=== PATIENT | male | born 1970 | race Caucasian/White ===

== ENCOUNTER 2019-01-02 20:02 | Observation (INO) | payer OTHER ==
[2019-01-02 20:13] LABS: Glucose,Whole Blood 111 mg/dL (75-99)
--- NOTE | 2019-01-02 20:35 | CT ---
EXAMINATION TYPE: CT brain wo con DATE OF EXAM: 01/02/2019 COMPARISON: None HISTORY: left sided facial and hand numbness CT DLP: 1087.4 mGycm Automated exposure control for dose reduction was used. FINDINGS: Ventricles and sulci appear normal. There is no mass effect nor midline shift. There is no sign of in tracranial hemorrhage. There is no evidence of cerebral edema. Calvarium is intact. IMPRESSION: NEGATIVE HEAD CT SCAN.
[2019-01-02 20:39] LABS: Basophils # (A) 0.1 k/uL (0-0.2); Basophils % (A) 1 %; Eosinophils # (A) 0.3 k/uL (0-0.7); Eosinophils % (A) 3 %; HCT 50.3 % (39.0-53.0); HGB 16.8 gm/dL (13.0-17.5); Lymphocytes % (A) 10 %; MCH 29.1 pg (25.0-35.0); MCHC 33.5 g/dL (31.0-37.0); MCV 86.8 fL (80.0-100.0); Mean Platelet Volume 7.2; Monocytes # (A) 0.5 k/uL (0-1.0); Monocytes % (A) 5 %; Neutrophils # (A) 8.5 k/uL (1.3-7.7); Neutrophils % (A) 81 %; Platelet Count 208 k/uL (150-450); RBC 5.79 m/uL (4.30-5.90); RDW 13.5 % (11.5-15.5); WBC 10.4 k/uL (3.8-10.6)
--- NOTE | 2019-01-02 20:43 | XR ---
EXAMINATION TYPE: XR chest 2V DATE OF EXAM: 01/02/2019 COMPARISON: NONE HISTORY: Face numbness TECHNIQUE: Frontal and lateral views of the chest are obtained. FINDINGS: Heart and mediastinum are normal. Lungs are clear. Diaphragm is normal. Bony thorax appear s normal. There are chest leads. IMPRESSION: Normal chest.
[2019-01-02 20:46] LABS: ALT 28 U/L (21-72); AST 24 U/L (17-59); African American GFR (CKD) >90 (>60 ml/min/1.73 sqM); Albumin 4.9 g/dL (3.5-5.0); Alkaline Phosphatase 85 U/L (38-126); Anion Gap 9 mmol/L; Blood Urea Nitrogen 15 mg/dL (9-20); Calcium 9.7 mg/dL (8.4-10.2); Carbon Dioxide 27 mmol/L (22-30); Chloride 102 mmol/L (98-107); Glucose 111 mg/dL (74-99); Potassium 4.5 mmol/L (3.5-5.1); Sodium 138 mmol/L (137-145); Total Bilirubin 0.6 mg/dL (0.2-1.3); Total Protein 7.9 g/dL (6.3-8.2)
[2019-01-02 20:48] LABS: Partial Thromboplastin Time 25.1 sec (22.0-30.0); Prothrombin Time 10.3 sec (9.0-12.0)
[2019-01-02] MEDS ORDERED: ASPIRIN 325 MG TAB PO STA (20:50)
[2019-01-02] MEDS ORDERED: ATORVASTATIN 80 MG TAB PO STA (20:51)
[2019-01-02 20:57] LABS: Creatine Kinase 111 U/L (55-170)
--- NOTE | 2019-01-02 20:58 | ED ---
General Adult HPI - General Chief complaint: Neuro Symptoms/Deficit Stated complaint: Rt sided weakness Source: patient, family, RN notes reviewed Mode of arrival: ambulatory Limitations: no limitations - History of Present Illness Initial comments: Chief complaint history of present illness a 56-year-old man here with his brother. The patient reports that approximately 3-1/2 hours ago while playing golf in the hot weather he felt he may have had a stroke. He reports that for 3 seconds the right side of his face was numb and then it returned. His brother said it seemed as though he had some difficulty not seeing words. 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 He states he much improved now though the sensation of tingling to the hand comes and goes. The patient even drove himself home afterwards. The patient denies any past medical problems, states he never sees a doctor. Denies being on any medications at this time. Denies any similar problems in the past. Denies anxiety or depression, alcohol or injury. - Related Data Home Medications Medication Instructions Recorded Confirmed No Known Home Medications 01/02/19 01/02/19 Allergies Allergy/AdvReac Type Severity Reaction Status Date / Time No Known Allergies Allergy Verified 01/02/19 20:42 Review of Systems ROS Statement: Those systems with pertinent positive or pertinent negative responses have been documented in the HPI. Review of systems. The patient's alert and oriented. Stating that 3/2 hours ago he thought he may have had a little stroke. He states for 3 seconds he had numbness to the right side of his face and some weakness to his investor relations specialist on his right hand started and is since gone away several times. He states he had difficulty writing his name. Patient otherwise alert and oriented and has no ot her neuro deficits. It has been 3-1/2 hours since the beginning of this episode. ROS Other: All systems not noted in ROS Statement are negative. Past Medical History Past Medical History: No Reported History History of Any Multi-Drug Resistant Organisms: None Reported Past Surgical History: No Surgical Hx Reported Past Psychological History: No Psychological Hx Reported Smoking Status: Current every day smoker Past Alcohol Use History: None Reported Past Drug Use History: None Reported General Exam - General Exam Comments Initial Comments: General: The patient is awake and alert, he states he thinks he may have had a stroke over 3 hours ago that lasted only 3 seconds. 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 Eye: Pupils are equal, round and reactive to light, extra-ocular movements are intact; there is normal conjunctiva bilaterally. No signs of icterus. Ears, nose, mouth and throat: There are moist mucous membranes and no oral lesions. Neck: The neck is supple, there is no tenderness, no carotid bruit Cardiovascular: There is a regular rate and rhythm. No murmur, rub or gallop is appreciated. Respiratory: Lungs are clear to auscultation, respirations are non-labored, breath sounds are equal. No wheezes, stridor, rales, or rhonchi. Gastrointestinal: Soft, non-distended, non-tender abdomen without masses or organomegaly noted. There is no rebound or guarding present. No CVA tenderness. Bowel sounds are unremarkable. Back: There is no tenderness to palpation in the midline. There is no obvious deformity. No rashes noted. Musculoskeletal: Normal ROM, no tenderness, There is no pedal edema. There is no calf tenderness or swelling. Sensation intact. Pulses equal bilaterally 2+. Neurological: CN II-XII intact, There are no obvious motor or sensory deficits. Coordination appears grossly intact. Speech is normal. 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 He states doesn't feel as strong as it normally is. Skin: Skin is warm and dry and no rashes or lesions are noted. Psychiatric: Cooperative, anxious Limitations: no limitations Course Vital Signs 01/02/19 01/02/19 01/02/19 20:05 20:10 20:40 Temperature 98.6 F 98.7 F 98.9 F Pulse Rate 80 70 70 Respiratory 18 14 14 Rate Blood Pressure 160/98 183/67 137/89 O2 Sat by Pulse 97 96 96 Oximetry 01/02/19 20:55 Temperature 98.7 F Pulse Rate 69 Respiratory 14 Rate Blood Pressure 137/93 O2 Sat by Pulse 96 Oximetry EKG Findings - EKG Comments: EKG Findings:: EKG was done and reviewed at 2019 showing normal sinus rhythm no acute ST elevation no ectopy. Rate 84 NV interval 148, QRS duration 94, QT [address] Guerrero Medical Decision Making - Medical Decision Making Rectal decision making; is a 48-year-old male who presents emergency room 3 1/2 hours after having what he thought was a little stroke. He states that while playing golf he felt numb and collapse of the right side of his face. This lasted only 3 seconds. He also complains of some weakness to his right hand which is gone since that time. This been over 3 and half hours. The patient drove himself home. Denying any headache no chest pain or palpitations. Patient states he never goes to the doctor and is not currently on any medications. Denies problems with anxiety or drugs or alcohol. States she's never had a problem like this before Stroke code was initiated, patient had a CAT scan of the brain, reviewed, Dr. Hawkins's findings include; ventricles and sulci appear normal. There is no mass effect or midline shift. There is no sign of intracranial hemorrhage. There is no evidence of cerebral edema. Calvarium is intact. Impression; normal head computed tomography scan. Chest x-ray was done and reviewed by radiologist his impression is heart and mediastinum are normal. Lungs are clear. Diaphragm is normal. Bony thorax appeared normal. There are chest leads. Impression; normal chest. As read by Dr. Shruthi Parkinson on-call neurologist interviewed the patient via telemedicine. He completed his interview and neurological exam. Dr. Starks spoke with the patient and stated that due to the clinical findings he does not recommend TPA to be given at this time. He recommends CTA brain and neck, at this time. He states that if negative and the patient remains symptom-free then he is to be admitted here this evening and have an MRI of his brain tomorrow. He stated that he would include in his dictation how the supervisor drilling and shooting can monitor the patient while in hospital. If all remains negative he is to follow-up with him in office in 2 weeks. Patient will be given aspirin 325, and Lipitor 80 mg. Show white count of 10 hemoglobin 16 hematocrit of 50. Potassium 4.5 with BUN of 15 creatinine 1.09 and GFR 79. Glucose 111. Troponin less than 0.012. The patient had a CTA of the cervical spine and brain. Full report was reviewed and the radiologist's final impression is normal CT angiogram of the neck and normal CT angiogram of the brain. As read by Dr. Hawkins Neuro exam at 10:15 PM patient remains intact. Subjective complaint of some mild tingling to his fingertips on his right hand. Otherwise answering questions appropriately, no gross abnormality., No headache. Patient be admitted to the on-call hospitalist. Patient walked to bathroom without difficulty. I spoke with and presented the case to Dr. Nathan, on-call hospitalist. Patient be admitted his service. Their neurologist included management to be followed while in hospital. With an MRI of the brain to be scheduled for tomorrow. - Lab Data Result diagrams: 01/02/19 20:17 01/02/19 20:17 Lab Results 01/02/19 01/02/19 01/02/19 Range/Units 20:11 20:17 20:17 WBC 10.4 (3.8-10.6) k/uL RBC 5.79 (4.30-5.90) m/uL Hgb 16.8 (13.0-17.5) gm/dL Hct 50.3 (39.0-53.0) % MCV 86.8 (80.0-100.0) fL MCH 29.1 (25.0-35.0) pg MCHC 33.5 (31.0-37.0) g/dL RDW 13.5 (11.5-15.5) % Plt Count 208 (150-450) k/uL Neutrophils % 81 % Lymphocytes % 10 % Monocytes % 5 % Eosinophils % 3 % Basophils % 1 % Neutrophils # 8.5 H (1.3-7.7) k/uL Lymphocytes # 1.0 (1.0-4.8) k/uL Monocytes # 0.5 (0-1.0) k/uL Eosinophils # 0.3 (0-0.7) k/uL Basophils # 0.1 (0-0.2) k/uL PT (9.0-12.0) sec INR (<1.2) APTT (22.0-30.0) sec Sodium 138 (137-145) mmol/L Potassium 4.5 (3.5-5.1) mmol/L Chloride 102 (98-107) mmol/L Carbon Dioxide 27 (22-30) mmol/L Anion Gap 9 mmol/L BUN 15 (9-20) mg/dL Creatinine 1.09 (0.66-1.25) mg/dL Est GFR (CKD-EPI)AfAm >90 (>60 ml/min/1.73 sqM) Est GFR (CKD-EPI)NonAf 79 (>60 ml/min/1.73 sqM) Glucose 111 H (74-99) mg/dL POC Glucose (mg/dL) 111 H (75-99) mg/dL 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 [employer] Elana Holloway Calcium 9.7 (8.4-10.2) mg/dL Total Bilirubin 0.6 (0.2-1.3) mg/dL AST 24 (17-59) U/L ALT 28 (21-72) U/L Alkaline Phosphatase 85 (38-126) U/L Total Creatine Kinase (55-170) U/L CK-MB (CK-2) (0.0-2.4) ng/mL CK-MB (CK-2) Rel Index Troponin I (0.000-0.034) ng/mL Total Protein 7.9 (6.3-8.2) g/dL Albumin 4.9 (3.5-5.0) g/dL 01/02/19 01/02/19 Range/Units 20:17 20:17 WBC (3.8-10.6) k/uL RBC (4.30-5.90) m/uL Hgb (13.0-17.5) gm/dL Hct (39.0-53.0) % MCV (80.0-100.0) fL MCH (25.0-35.0) pg MCHC (31.0-37.0) g/dL RDW (11.5-15.5) % Plt Count (150-450) k/uL Neutrophils % % Lymphocytes % % Monocytes % % Eosinophils % % Basophils % % Neutrophils # (1.3-7.7) k/uL Lymphocytes # (1.0-4.8) k/uL Monocytes # (0-1.0) k/uL Eosinophils # (0-0.7) k/uL Basophils # (0-0.2) k/uL PT 10.3 (9.0-12.0) sec INR 1.0 (<1.2) APTT 25.1 (22.0-30.0) sec Sodium (137-145) mmol/L Potassium (3.5-5.1) mmol/L Chloride (98-107) mmol/L Carbon Dioxide (22-30) mmol/L Anion Gap mmol/L BUN (9-20) mg/dL Creatinine (0.66-1.25) mg/dL Est GFR (CKD-EPI)AfAm (>60 ml/min/1.73 sqM) Est GFR (CKD-EPI)NonAf (>60 ml/min/1.73 sqM) Glucose (74-99) mg/dL POC Glucose (mg/dL) (75-99) mg/dL 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
[2019-01-02 21:09] LABS: Creatine Kinase MB 0.8 ng/mL (0.0-2.4); Troponin I <0.012 ng/mL (0.000-0.034)
--- NOTE | 2019-01-02 21:44 | CT ---
EXAMINATION TYPE: CODE STROKE: CTA head neck DATE OF EXAM: 01/02/2019 HISTORY: Neuro deficits. COMPARISON: None CT DLP: 498.7 mGycm. Automated Exposure Control for Dose Reduction was Utilized. TECHNIQUE: CTA scan of the neck is performed with IV Contrast, patient injected with 50ml mL of Isov ue 370, axial images are obtained, coronal and sagittal reformatted images are reviewed. Three-D cici nstructed images are created on an independent workstation and reviewed. FINDINGS: There is normal branching pattern of the great vessels on the aortic arch. There is bilateral arteria l flow in the subclavian arteries. There is bilateral arterial flow in the vertebral arteries which a re fairly symmetric. There is arterial flow in the common internal and external carotid arteries bila terally. There is no evidence of carotid or vertebral artery aneurysm or dissection or stenosis. There is arterial flow in the vertebrobasilar artery system. There is arterial flow in the anterior m iddle and posterior cerebral arteries. There is normal contrast opacification of the venous sinuses. There is no evidence of intracranial aneurysm or neovascularity. There is no mass effect. There is no evidence of intracranial arterial stenosis. IMPRESSION: Normal CT angiogram of the neck. Normal CT angiogram of the brain.
[2019-01-02] MEDS ORDERED: NALOXONE 0.4 MG/ML 1 ML VIAL IV PRN (22:24)
[2019-01-02] MEDS ORDERED: ACETAMINOPHEN TAB 325 MG TAB PO PRN (22:24)
[2019-01-02] MEDS ORDERED: SODIUM CHLORIDE 0.9% 1,000 ML IV SCH (22:30)
[2019-01-02 23:47] VITALS: BMI 29.6
[2019-01-02] MEDS: HEPARIN SODIUM,PORCINE 5,000 UNIT/ML 1 ML VIAL SQ SCH (23:59)
--- NOTE | 2019-01-03 00:02 | P.HPIM ---
History of Present Illness H&P Date: 01/02/19 The patient is a 48 yo M with no known PMH, active 1 PPD smoker, who hadn't seen a physician in past 20 years presented to the ED for sudden onset of R face and arm weakness and numbness. The patient noted that he was in his usual state of health and on the golf course with his brother when he suddenly developed R face numbness, R facial droop, and R arm and hand weakness at 5 pm earlier today. The symptoms immediately began to improve, with his facial droop resolving almost immediately (within a few seconds). The patient notes feeling somewhat lightheaded at onset of symptoms which also quickly resolved. He otherwise denied any associated symptoms. He subsequently went home, hoping for symptoms to resolve. He however notes that he was unable to hold a pen or write, which did not resolve, and prompted him to come to the ED. At time of the interview, the patient reported that he continues to have R hand weakness though it continues to improve gradually. He otherwise denied headache, dizziness, impaired gait, or speech impairements. He denied chest pain, SOB, nausea, or vomiting. Denied abdominal pain, fever, or chills. The patient underwent an extensive evaluation. A brain CT and CTA were unremarkable. A tele-medicine Neurology consult was obtained and the patient was deemed not to be a candidate for tPA and was given high dose aspirin and lipitor. Laboratory evaluation revealed Troponin levels < 0.012, WBC 10.4, Hgb 16.8, platelets 208, BUN 15, and Cr 1.09. The neurologist recommended for patient to be admitted for further evaluation for CVA. Review of Systems Pertinent positives and negatives as discussed in HPI, a complete review of systems was performed and all other systems are negative. Past Medical History Past Medical History: No Reported History History of Any Multi-Drug Resistant Organisms: None Reported Past Surgical History: No Surgical Hx Reported Past Psychological History: No Psychological Hx Reported Smoking Status: Current every day smoker Past Alcohol Use History: None Reported Past Drug Use History: None Reported - Past Family History Father Family Medical History: Hypertension Medications and Allergies Home Medications Medication Instructions Recorded Confirmed Type No Known Home Medications 01/02/19 01/02/19 History Allergies Allergy/AdvReac Type Severity Reaction Status Date / Time No Known Allergies Allergy Verified 01/02/19 20:42 Physical Exam Vitals: Vital Signs Temp Pulse Resp BP Pulse Ox 01/02/19 21:55 98.2 F 61 14 131/91 96 01/02/19 21:25 98.3 F 60 14 137/89 96 01/02/19 20:55 98.7 F 69 14 137/93 96 01/02/19 20:40 98.9 F 70 14 137/89 96 01/02/19 20:10 98.7 F 70 14 183/67 96 01/02/19 20:05 98.6 F 80 18 160/98 97 Intake and Output 01/02/19 01/02/19 01/02/19 06:59 14:59 22:59 Other: Weight 60.056 kg General: non toxic, no distress, appears at stated age, normal weight Derm: no unusual rashes/lesions no unusual ecchymoses, warm, dry Head: atraumatic, normocephalic, symmetric Eyes: EOMI, no lid lag, anicteric sclera, pupils equal round reactive to light ENT: Nose and ears atraumatic, no thrush, no pharyngeal erythema Neck: No thyromegaly, no cervical lymphadenopathy, trachea midline, supple Mouth: no lip lesion, mucus membranes moist Cardiovascular: S1S2 reg, no murmur, positive posterior tibial pulse bilateral, no edema, capillary refill less than 2 seconds Lungs: CTA bilateral, no rhonchi, no rales , no accessory muscle use Abdominal: soft, nontender to palpation, no guarding, no appreciable organomegaly, normal bowel sounds Ext: no gross muscle atrophy, no contractures, Neuro: R sided mild facial weakness, RUE strength 4/5, otherwise strength 5/5 throughout, light touch intact all 4 extremities, finger to nose within normal limits, CN II-XII otherwise intact Psych: Alert, oriented, appropriate affect Results CBC & Chem 7: 01/02/19 20:17 01/02/19 20:17 Labs: Abnormal Lab Results - Last 24 Hours (Table) 01/02/19 01/02/19 01/02/19 Range/Units 20:11 20:17 20:17 Neutrophils # 8.5 H (1.3-7.7) k/uL Glucose 111 H (74-99) mg/dL POC Glucose (mg/dL) 111 H (75-99) mg/dL Assessment and Plan Plan: Acute CVA/TIA -Neurology consult -Neurochecks -Obtain brain MRI -Echocardiogram, Carotid duplex, [id number] evaluation -Check A1C, lipid profile -Advised on importance of smoking cessation Active tobacco abuse -Advised on importance of cessation in light of CVA DVT prophylaxis -Heparin The patient is admitted with an anticipated less than 2 midnight stay for evaluation of CVA/TIA. CODE STATUS:Full-Code Discussed with: Patient Anticipated discharge date: 01/04/[address]: Home A total of 45 minutes was spent on the care of this complex patient more than 50% of the time was spent in counseling and care coordination.
[2019-01-03 00:28] LABS: Cholesterol 226 mg/dL (<200); HDL Cholesterol 38 mg/dL (40-60); LDL Cholesterol,Calculated 156 mg/dL (0-99); Triglycerides 159 mg/dL (<150)
[2019-01-03 05:07] VITALS: RESP 16
--- NOTE | 2019-01-03 05:35 | US ---
EXAMINATION TYPE: US carotid duplex BILAT DATE OF EXAM: 01/03/2019 COMPARISON: NONE CLINICAL HISTORY: CVA. CVA, right sided facial numbness EXAM MEASUREMENTS: RIGHT: Peak Systolic Velocity (PSV) cm/sec ----- Right CCA: 82.0 ----- Right ICA: 80.9 ----- Right ECA: 126.3 ICA/CCA ratio: 1.0 RIGHT: End Diastole cm/sec ----- Right CCA: 22.6 ----- Right ICA: 29.2 ----- Right ECA: 21.5 LEFT: Peak Systolic Velocity (PSV) cm/sec ----- Left CCA: 75.8 ----- Left ICA: 88.8 ----- Left ECA: 109.5 ICA/CCA ratio: 1.2 LEFT: End Diastole cm/sec ----- Left CCA: 24.1 ----- Left ICA: 37.0 ----- Left ECA: 24.1 VERTEBRALS (direction of flow): Right Vertebral: Antegrade Left Vertebral: Antegrade Rhythm: Normal Collier scale images show mild peripheral plaque at carotid bulb level bilaterally. IMPRESSION: No hemodynamically significant stenosis in either internal carotid artery. Criteria for Assigning % of Stenosis / Diameter reduction (Estimation based on the indirect measurements of the internal carotid artery velocities (ICA PSV). 1. Normal (no stenosis)=ICA PSV < 125 cm/s: ratio < 2.0: ICA EDV<40 cm/s. 2. Less than 50% stenosis=ICA PSV < 125 cm/s: ratio < 2.0: ICA EDV<40 cm/s. 3. 50 to 69% stenosis=ICA PSV of 125 to 230 cm/s: ration 2.0 ? 4.0: ICA EDV 40-100 cm/s. 4. Greater than 70% stenosis to near occlusion= ICA PSV > 230 cm/s: ratio > 4.0: ICA EDV > 100 cm/s. 5. Near occlusion= ICA PSV velocities may be low or undetectable: variable ratio and ICA EDV. 6. Total occlusion=unable to detect flow.
[2019-01-03] MEDS: HEPARIN SODIUM,PORCINE 5,000 UNIT/ML 1 ML VIAL SQ SCH (08:13)
[2019-01-03 08:19] VITALS: TEMP 97.5
[2019-01-03] MEDS ORDERED: ATORVASTATIN 40 MG TAB PO SCH (09:00)
[2019-01-03] MEDS ORDERED: FAMOTIDINE 20 MG TAB PO SCH (09:00)
[2019-01-03] MEDS ORDERED: ASPIRIN 325 MG TAB PO SCH (09:00)
--- NOTE | 2019-01-03 11:39 | MR ---
EXAMINATION TYPE: MR brain wo/w con DATE OF EXAM: 01/03/2019 COMPARISON: CT brain from yesterday. HISTORY: CVA TECHNIQUE: Multiplanar, multisequence images of the brain and brainstem is performed without and with IV contras t, utilizing 10 mL intravenous Gadavist . FINDINGS: Diffusion weighted images demonstrate subcortical area of curvilinear increased signal on d iffusion-weighted images with diminished signal on ADC mapping posterior left frontal lobe just anter ior to central sulcus that shows T2 hyperintensity and T1 hypointensity without enhancement consisten t with evolving acute infarct. There is no worrisome extra-axial fluid collection. The ventricular system and cisternal spaces are normal in size and appearance. The brain volume is age appropriate. Occasional scattered focus of T2 hyperintensity is seen throughout the white matter bilaterally. Appr oximately 5 scattered lesions are seen. Midline structures demonstrate normal morphology. The craniocervical junction appears within normal limits. Post contrast images demonstrate no abnormal enhancement. The dural venous sinuses appear pa tent. The visualized sinuses are clear and the globes are intact. IMPRESSION: Confirmation of small acute lacunar infarct posterior left frontal lobe immediately anter ior to the central sulcus at level of the primary motor cortex.
[2019-01-03 12:30] VITALS: BP 125/85; PULSE 55
--- NOTE | 2019-01-03 15:53 | ECHOF ---
Referral Reason:CVA MEASUREMENTS -------- HEIGHT: 188.0 cm WEIGHT: 104.3 kg BP: 146/96 IVSd: 1.3 cm (0.6 - 1.1) LVIDd: 4.1 cm (3.9 - 5.3) LVPWd: 1.4 cm (0.6 - 1.1) IVSs: 1.5 cm LVIDs: 2.5 cm LVPWs: 1.7 cm RVIDd: 3.8 cm (< 3.3) LAESV Index (A-L): 17.41 ml/m Ao Diam: 3.8 cm (2.0 - 3.7) LA Diam: 3.4 cm (2.7 - 3.8) AV Cusp: 2.1 cm (1.5 - 2.6) EPSS: 0.6 cm MV E Alberto: 0.52 m/s MV DecT: 259 ms MV A Alberto: 0.34 m/s MV E/A Ratio: 1.55 RAP: 5.00 mmHg RVSP: 32.27 mmHg MV EF SLOPE: 112.84 mm/s (70 - 150) MV EXCURSION: 11.80 mm (> 18.000) FINDINGS -------- Sinus rhythm. This was a technically adequate study. The left ventricular size is normal. There is mild concentric left ventricular hypertrophy. There is normal global left ventricular contractility. Overall left ventricular systolic function is nor mal with, an EF between 60 - 65 %. The diastolic filling pattern is normal for the age of the patie nt 7.06. The right ventricle is mild to moderately enlarged. Normal LA size by volume 22+/-6 ml/m2. RA appears enlarged. Interatrial and interventricular septum intact. The aortic valve is trileaflet and appears structurally normal. There is no evidence of aortic regu rgitation. There is no evidence of aortic stenosis. The mitral valve is normal. No regurgitation noted There is borderline pulmonary hypertension. The right ventricular systolic pressure, as measured by Doppler, is 32.27mmHg. There is no pulmonic regurgitation present. The aortic root is moderately dilated. The inferior vena cava is moderately dilated. There is no pericardial effusion. CONCLUSIONS -------- 1. Sinus rhythm. 2. This was a technically adequate study. 3. The left ventricular size is normal. 4. There is mild concentric left ventricular hypertrophy. 5. There is normal global left ventricular contractility. 6. Overall left ventricular systolic function is normal with, an EF between 60 - 65 %. 7. The diastolic filling pattern is normal for the age of the patient 7.06 8. The right ventricle is mild to moderately enlarged. 9. Normal LA size by volume 22+/-6 ml/m2. 10. RA appears enlarged. 11. Interatrial and interventricular septum intact. 12. The aortic valve is trileaflet and appears structurally normal. 13. There is no evidence of aortic regurgitation. 14. There is no evidence of aortic stenosis. 15. The mitral valve is normal. 16. No regurgitation noted 17. There is borderline pulmonary hypertension. 18. The right ventricular systolic pressure, as measured by Doppler, is 32.27mmHg. 19. There is no pulmonic regurgitation present. 20. The aortic root is moderately dilated. 21. The inferior vena cava is moderately dilated. 22. There is no pericardial effusion. 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
[2019-01-03 16:01] LABS: Hemoglobin A1C 5.7 % (4.0-6.0)
--- NOTE | 2019-01-03 16:21 | P.DS ---
Providers Date of admission: 01/02/19 22:27 Expected date of discharge: 01/03/19 Attending physician: Kasey Wray MD Primary care physician: Stated None - Discharge Diagnosis(es) (1) Acute lacunar infarction Current Visit: Yes Status: Acute (2) Essential hypertension Current Visit: Yes Status: Acute (3) Hyperlipidemia Current Visit: Yes Status: Acute (4) Smoking Current Visit: Yes Status: Acute Hospital Course: The patient is a 48-year-old male that was admitted after presenting with a right facial and upper extremity weakness with paresthesias and was subsequently found to have a small acute lacunar infarct on the posterior left frontal lobe confirmed by MRI after initial CT of the head and neck with angiography was negative. The patient's symptoms had resolved within 24 hours, on presentation code stroke was called and on-call neurologist Dr. Parkinson recommended no TPA be given as a patient had presented slightly outside the window for which TPA is indicated. The patient was started on aspirin and high- dose statin therapy, The patient was noted to have hyperlipidemia and hypertriglyceridemia with an LDL and triglycerides at 156 and 159 respectively. As the patient's symptoms had resolved without further complications and echocardiogram done showed a preserved LVEF of 60-65% without any intracardiac shunt noted the patient was subsequently discharged home in stable condition and told to establish PCP. The patient was also consult to stop smoking. This discharge process took approximately 35 minutes Focused exam Neurologic: Cranial nerves II-12 grossly intact no focal deficits appreciated Patient Condition at Discharge: Good Plan - Discharge Summary Discharge Rx Participant: No New Discharge Prescriptions: New Aspirin 325 mg PO DAILY #30 tab Hydrochlorothiazide [Hydrodiuril] 25 mg PO DAILY #30 tab Atorvastatin [Lipitor] 40 mg PO DAILY #30 tab Clopidogrel [Plavix] 75 mg PO DAILY #30 tab Discharge Medication List Aspirin 325 mg PO DAILY #30 tab 01/03/19 [Rx] Atorvastatin [Lipitor] 40 mg PO DAILY #30 tab 01/03/19 [Rx] Clopidogrel [Plavix] 75 mg PO DAILY #30 tab 01/03/19 [Rx] Hydrochlorothiazide [Hydrodiuril] 25 mg PO DAILY #30 tab 01/03/19 [Rx] Follow up Appointment(s)/Referral(s): None,Stated [Primary Care Provider] - 1-2 days Patient Instructions/Handouts: Ischemic Stroke (DC) Discharge Disposition: HOME SELF-CARE
[2019-01-04] MEDS ORDERED: HYDROCHLOROTHIAZIDE 25 MG TAB PO SCH (09:00)
[2019-01-04] MEDS ORDERED: CLOPIDOGREL 75 MG TAB PO SCH (09:00)
== END 2019-01-03 15:45 | disposition home or self-care (01) ==
LOC: EC 20:02 → 3SCARD 22:27
PROVIDERS: ADMIT Internal Medicine; ATTEND Internal Medicine
DX: I63.81 Other cerebral infarction due to occlusion or stenosis of small artery (principal); I10 Essential (primary) hypertension; E78.5 Hyperlipidemia, unspecified; E78.1 Pure hyperglyceridemia; F17.210 Nicotine dependence, cigarettes, uncomplicated; Z82.49 Family history of ischemic heart disease and other diseases of the circulatory system
CPT/HCPCS: 99285; 36415; 93005; 93306; 80061; 80053; 82550; 82553; 84484; 85025; 85610; 85730; 83036; 71046; 93880; 70496; 70450; 70498; 70553; G0378 ×2; A9585; Q9967